=== PATIENT | male | born 1930 | race Caucasian/White ===

== ENCOUNTER 2016-12-15 16:09 | Emergency (ER) | payer MEDICARE, BC ==
--- NOTE | 2016-12-15 16:50 | UC ---
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--she noted fluid behind right ear drum and advised him to seek medical treatment---some decrease hearing but no pain---did recently have a cold and sinus congestion - History of Current Complaint Stated Complaint: RT EAR COMPLAINT Time Seen by Provider: 12/15/16 16:46 Hx Obtained From: Patient Onset/Duration: Gradual Onset, Still Present Severity Initially: Mild Severity Currently: None Aggravating Factors: Nothing Alleviating Factors: Nothing Associated Signs/Symptoms: Positive: Hearing Loss, URI Symptoms - Allergies/Home Medications Allergies/Adverse Reactions: Allergies Allergy/AdvReac Type Severity Reaction Status Date / Time Penicillins Allergy Rash Verified 12/15/16 16:51 PMH/Surg Hx/FS Hx/Imm Hx Previously Healthy: No Endocrine History Of: Reports: Dyslipidemia - Surgical History Surgical History: Yes Surgery Procedure, Year, and Place: 9 surgeries on eyes. gallbladder. back surgery x2. Prostate nodule removed - Family History Known Family History: Positive: None Family History: no known cardiovascular illness in family lineage - Social History Occupation: Retired Lives: With Family Alcohol Use: Daily Alcohol Amount: 2 glasses of wine everyday Substance Use Type: None Smoking Status (MU): Former Smoker Type: Cigarettes Review of Systems Constitutional: Negative Skin: Negative Eyes: Negative ENT: Ear Ache - decrease hearing right ear Respiratory: Negative Cardiovascular: Negative Gastrointestinal: Negative Genitourinary: Negative Motor: Negative Neurovascular: Negative Musculoskeletal: Negative Neurological: Negative Psychological: Negative All Other Systems Reviewed And Are Negative: Yes Physical Exam Triage Information Reviewed: Yes Appearance: Well-Appearing, No Pain Distress, Well-Nourished Vital Signs Reviewed: Yes Eye Exam: Normal Eyes: Positive: Conjunctiva Clear ENT Exam: Other ENT: Positive: Hearing grossly normal, Pharynx normal, TMs normal - left, TM dull - right. Negative: Nasal congestion, Nasal drainage, Tonsillar swelling, Tonsillar exudate, Trismus, Muffled/hoarse voice Dental Exam: Normal Neck exam: Normal Neck: Positive: Supple, Nontender, No Lymphadenopathy Respiratory Exam: Normal Respiratory: Positive: Chest non-tender, Lungs clear, Normal breath sounds, No respiratory distress, No accessory muscle use Cardiovascular Exam: Normal Cardiovascular: Positive: RRR, No Murmur, Pulses Normal, Brisk Capillary Refill Musculoskeletal Exam: Normal Musculoskeletal: Positive: Strength Intact, ROM Intact, No Edema Neurological Exam: Normal Neurological: Positive: Alert, Muscle Tone Normal Psychological Exam: Normal Skin Exam: Normal Ear Complaint Course/Dx - Course Course Of Treatment: flonase, zithromax, follow with pcp - Differential Dx/Diagnosis Differential Diagnosis/HQI/PQRI: Cerumen Impaction, Otitis Externa, Otitis Media , URI Provider Diagnoses: serrous otitis media Discharge - Discharge Plan Condition: Stable Disposition: HOME Prescriptions: Azithromycin TAB* [Zithromax TAB (Z-DINO) 250 mg #6 tabs] 2 tab PO .TODAY, THEN 1 DAILY #1 dino Fluticasone NASAL SPRAY 50MCG* [Flonase NASAL SPRAY 50MCG*] 2 spray BOTH NARES DAILY #1 btl Patient Education Materials: Serous Otitis Media (ED) Referrals: HERBERT Kilgore [Primary Care Provider] - 2 Weeks
[2016-12-15 16:51] VITALS: BP 114/71
== END 2016-12-15 17:21 | disposition home or self-care (01) ==
LOC: UCCORT 16:09
DX: H65.91 Unspecified nonsuppurative otitis media, right ear (principal); Z88.0 Allergy status to penicillin
CPT/HCPCS: 99212; G0463

== ENCOUNTER 2017-01-05 09:24 | Emergency (ER) | payer MEDICARE, BC ==
[2017-01-05 10:22] VITALS: BP 152/77
--- NOTE | 2017-01-05 10:47 | UC ---
Ear Complaint HPI - HPI Summary HPI Summary: RIGHT EAR DISCOMFORT X 1 MONTH HAS BEEN SEEN AT THE URGENT CARE 3 X , HAS BEEN ON ORAL ABX , FLONASE WITH NO IMPROVEMENT - History of Current Complaint Chief Complaint: UCEar Stated Complaint: RECHECK RIGHT EAR Time Seen by Provider: 01/05/17 10:12 Hx Obtained From: Patient Onset/Duration: Gradual Onset, Lasting Days - 30, Still Present Severity Initially: Moderate Severity Currently: Moderate Aggravating Factors: Nothing Alleviating Factors: Nothing Associated Signs/Symptoms: Positive: Hearing Loss. Negative: Foreign Body Sensation, Trauma to Ear, Swelling @, URI Symptoms - Allergies/Home Medications Allergies/Adverse Reactions: Allergies Allergy/AdvReac Type Severity Reaction Status Date / Time Penicillins Allergy Rash Verified 01/05/17 10:22 Home Medications: Home Medications Aleve Tab 2 tab PO ONCE PRN 01/05/17 [History Confirmed 01/05/17] PMH/Surg Hx/FS Hx/Imm Hx Endocrine History Of: Reports: Dyslipidemia - Surgical History Surgical History: Yes Surgery Procedure, Year, and Place: 9 surgeries on eyes, appy and subsequent abscess at incision site. gallbladder. back surgery x2. Prostate nodule removed - Family History Known Family History: Positive: None Negative: Diabetes Family History: no known cardiovascular illness in family lineage - Social History Alcohol Use: Daily Alcohol Amount: 2 glasses of wine everyday Substance Use Type: None Smoking Status (MU): Former Smoker Type: Cigarettes When Did the Patient Quit Smoking/Using Tobacco: 1978 Review of Systems Constitutional: Negative Skin: Negative Eyes: Negative ENT: Ear Ache Respiratory: Negative Cardiovascular: Negative Gastrointestinal: Negative All Other Systems Reviewed And Are Negative: Yes Physical Exam Triage Information Reviewed: Yes Appearance: Well-Appearing, No Pain Distress, Well-Nourished Vital Signs: Initial Vital Signs Temp 98.6 F 01/05/17 10:06 Pulse 57 01/05/17 10:06 Resp 18 01/05/17 10:06 BP 152/77 01/05/17 10:06 Vital Signs Reviewed: Yes Eye Exam: Normal Eyes: Positive: Conjunctiva Clear ENT: Positive: Normal ENT inspection, Hearing grossly normal, Pharynx normal, Nasal congestion, Nasal drainage, TMs normal. Negative: Pharyngeal erythema, TM bulging, TM dull, TM red Neck exam: Normal Neck: Positive: Supple, Nontender, No Lymphadenopathy Respiratory: Positive: Chest non-tender, Lungs clear, Normal breath sounds, No respiratory distress Cardiovascular: Positive: RRR, Murmur:Sys:Grade _?_/ - 3 Skin Exam: Normal Ear Complaint Course/Dx - Course Course Of Treatment: HAS BEEN SEEN AT THE URGENT CARE X 3. WILL MAKE A REFERRLA TO ENT. PT. WANTS TO SEE DR SINCLAIR - Differential Dx/Diagnosis Provider Diagnoses: RIGHT EAR PAIN Discharge - Discharge Plan Condition: Stable Disposition: HOME Patient Education Materials: Earache (ED) Referrals: HERBERT Kilgore [Primary Care Provider] - Miguelangel Sinclair MD [Medical Doctor] - As Soon As Possible Additional Instructions: FEELING OF FLUID IN RIGHT EAR REFERRAL TO ENT FOR EVAL AND TX.
== END 2017-01-05 10:48 | disposition home or self-care (01) ==
LOC: UCCORT 09:24
DX: H92.01 Otalgia, right ear (principal); Z88.0 Allergy status to penicillin; Z87.891 Personal history of nicotine dependence
CPT/HCPCS: 99212; G0463